=== PATIENT | male | born 1995 | race Hispanic/Latino ===

== ENCOUNTER 2018-08-26 12:28 | Emergency (ER) | payer OTHER ==
[2018-08-26 13:37] LABS: APPEARANCE,URINE Clear (CLEAR); BILIRUBIN,URINE Negative (NEGATIVE); COLOR,URINE Dark Yellow (YELLOW); GLUCOSE, URINE (UA) Negative (NEGATIVE); KETONES,URINE >=80 mg/dL (NEGATIVE); LEUKOCYTE ESTERASE ,URINE Negative (NEGATIVE); NITRATE,URINE Negative (NEGATIVE); OCCULT BLOOD,URINE Negative (NEGATIVE); PROTEIN,URINE POS 1+ mg/dL (NEGATIVE)
[2018-08-26 13:56] LABS: BACTERIA,URINE Rare /HPF (None Seen); RBC,URINE None Seen /HPF (0-1); WBC,URINE None Seen /HPF (0-1)
[2018-08-26 14:04] LABS: RAPID GROUP A STREP NEGATIVE (NEGATIVE)
[2018-08-26] MEDS ORDERED: KETOROLAC TROMETHAMINE 30MG/ML ONE (14:25)
== END 2018-08-26 16:08 | disposition home or self-care (01) ==
LOC: EDH 12:28
DX: J20.9 Acute bronchitis, unspecified (principal); J02.9 Acute pharyngitis, unspecified
CPT/HCPCS: 71045; 81001; 87804 ×2; 87880; 96372; 99285; J1885